=== PATIENT | male | born 1950 | race Caucasian/White ===

== ENCOUNTER → 2017-07-27 | Outpatient (CLI) | payer OTHER ==
[~2017-07-27] MED LIST: AMLODIPINE BESY10 MG PO; ASPIR-TRIN325 M1 PO; BACTRIM,SEPT1 TABLET PO; CARDURA4 MG PO; CARVEDILOL25 MG PO; CELEBREX200 MG PO; CLEOCIN300 MG PO; CLONIDINE HCL0.3 MG PO; Cozaar PO; GLUCOPHAGE1000 MG PO; LISINOPRIL20 MG PO; LONITEN2.5 MG PO; Lantus 3 ml Solostar SC; Lasix PO; PAROXETINE HCL10 MG PO; POTASSIUM CHLO20 ME1 PO; PRANDIN1 MG PO; Procardia XL,Adalat PO; RIFADIN300 MG PO; SENOKOT S,PE1 TABLET PO; SPIRONOLACTONE50 MG PO; Tenormin PO; VANCOMYCIN1 GM/150 M IV; Vicodin,Lortab 5/500 PO; Zocor PO
== END | disposition home or self-care (01) ==
LOC: RES 10:40
DX: J41.0 Simple chronic bronchitis (principal)
CPT/HCPCS: 94060; 94726; 94729

== ENCOUNTER 2017-08-02 16:52 | Emergency (ER) | payer OTHER ==
[~2017-08-02] VITALS: Ht 175.3 cm; Wt 117.4 kg
[2017-08-02 16:54] VITALS: BP 151/89
[2017-08-02] MEDS ORDERED: FLEXERIL5 MG PO (18:05)
[2017-08-02] MEDS ORDERED: LIDODERM 5% P1 PATCH TD (18:05)
== END 2017-08-02 18:15 | disposition home or self-care (01) ==
LOC: EME 16:52
DX: M51.17 Intervertebral disc disorders with radiculopathy, lumbosacral region (principal); R93.7 Abnormal findings on diagnostic imaging of other parts of musculoskeletal system; I10 Essential (primary) hypertension; E11.9 Type 2 diabetes mellitus without complications; E78.00 Pure hypercholesterolemia, unspecified; F17.200 Nicotine dependence, unspecified, uncomplicated; Z79.4 Long term (current) use of insulin; Z96.653 Presence of artificial knee joint, bilateral
CPT/HCPCS: 72100; 99281; 99284